=== PATIENT | female | born 1990 | race Hispanic/Latino ===

== ENCOUNTER 2019-10-29 11:06 | Emergency (ER) | payer SELFPAY ==
--- NOTE | ~2019-10-29 | CT_ITS ---
EXAMINATION: CT abdomen pelvis w con DATE: 10/29/2019 15:34 INDICATION: Nausea and vomiting. Diarrhea. Abdominal pain. TECHNIQUE: Computed tomography (CT) of the abdomen and pelvis was performed with 100 mL Omnipaque 350 intravenous contrast. Automated exposure control and iterative reconstruction technique were employe d. The dose-length product was 392.91 mGy-cm. COMPARISON: None. FINDINGS: The visualized portions of the lung bases demonstrate mild atelectasis in right lower lobe. No pleural effusion. The heart size is normal. No pericardial effusion. The liver is normal. The gal lbladder is normal in size. There is a gallstone in the gallbladder. Gallbladder wall thickening is n oted. The spleen, pancreas, adrenal glands, and right kidney are normal. There is a 2.0 cm cyst in le ft kidney. There are no dilated loops of bowel. The appendix is normal. There are no pathologically e nlarged lymph nodes. There is no free intraperitoneal fluid. The bones are unremarkable. IMPRESSION: 1. Cholelithiasis. Gallbladder wall thickening may be secondary to acute or chronic cholecystitis. Co nsider ultrasound. Reviewed, dictated and finalized at location A. IMPRESSION: 1. Cholelithiasis. Gallbladder wall thickening may be secondary to acute or chr onic cholecystitis. Consider ultrasound.
--- NOTE | ~2019-10-29 | US_ITS ---
US right upper quadrant INDICATION: Abdominal pain PROCEDURE: Realtime right upper abdominal ultrasound. COMPARISON: No prior studies for comparison. FINDINGS: The pancreas is normal without focal mass or pancreatic ductal dilation. Liver echotexture is normal without focal mass or intrahepatic biliary dilatation. There is normal directional flow i n the portal vein. The gallbladder is normal without stones, gallbladder wall thickening or pericholecystic fluid. Comm on bile duct measures 5 mm. No sonographic Robbins's sign. IMPRESSION: 1: Normal limited abdominal ultrasound. Reviewed, dictated and finalized at location A.
[2019-10-29 11:11] VITALS: BP 135/81; PULSE 70; RESP 18; TEMP 36.8; O2SAT 100
[2019-10-29 11:49] LABS: Basophils Percent Auto 0.2 % (0.2-1.2); Hematocrit 38.3 % (37.0-47.0); Hemoglobin 13.5 g/dL (12.0-15.0); Immature Granulocyte Absolute 0.06 K/mm3 (0.00-0.031); Immature Granulocyte Percent A 0.4 % (0-0.5); Lymphocytes Absolute Auto 1.43 K/mm3 (0.9-3.2); Lymphocytes Percent Auto 8.8 % (18.3-44.2); Mean Corpuscular HGB Conc 35.2 g/dl (32-36); Mean Corpuscular Volume 87.8 fl (80-100); Mean Platelet Volume 9.6 fl (7.4-10.4); Monocytes Absolute Auto 0.4 K/mm3 (0.1-0.6); Monocytes Percent Auto 2.3 % (2.6-8.5); Neutrophils Absolute Auto 14.3 K/mm3 (1.3-6.7); Neutrophils Percent Auto 88.3 % (45.5-73.1); Platelet Count Result 312 k/mm3 (150-375); Red Blood Count 4.36 M/mm3 (4.2-5.4); Red Cell Distribution Width 12.2 % (11.5-14.5); White Blood Count 16.2 K/mm3 (4.5-10.0)
[2019-10-29 11:59] LABS: Add Urine Microscopic? YES; Appearance Urine Clear (Clear); Bacteria Urine Trace /hpf; Bilirubin Urine Negative (Negative); Blood Urine Negative (Negative); Color Urine Yellow (Yellow); Glucose Urine UA Negative (Negative); Ketones Urine Negative (Negative); Leukocyte Esterase Ur Trace LEU/UL (Negative); Mucus Urine Rare /lpf; Nitrate Urine Negative (Negative); Protein Urine 1+ mg/dL (Negative); Specific Grav Ur 1.025 (1.001-1.035); Squamous Epithelial Cell Urine Few /hpf (Few); Urobilinogen Urine Negative mg/dL (<2.0)
[2019-10-29 12:06] LABS: Alanine Aminotransferase 22 U/L (4-35); Albumin Level 4.7 g/dL (3.5-5.1); Alkaline Phosphatase 74 U/L (38-126); Aspartate Amino Transferase 25 U/L (14-36); Bilirubin,Total 0.2 mg/dL (0.2-1.3); Blood Urea Nitrogen 9 mg/dL (7-17); Calcium 8.6 mg/dL (8.4-10.2); Carbon Dioxide 24 mmol/L (22-30); Chloride 102 mmol/L (98-107); Estimated CRCL calculation 138 ml/min; Estimated Glomerular Filt Rate > 60; Glucose 118 mg/dL (65-105); Lipase 71 U/L (23-300); Potassium 3.9 mmol/L (3.4-5.0); Sodium 133 mmol/L (137-145)
[2019-10-29] MEDS: FAMOTIDINE 20 MG/2 ML VIAL IV PUSH (12:15)
[2019-10-29] MEDS: SODIUM CHLORIDE 0.9% IV 1,000 ML 999 ML IV CONT ×2 (12:15→13:15)
[2019-10-29] MEDS: ONDANSETRON INJ 4 MG/2 ML VIAL IV PUSH ×2 (12:16→14:54)
--- NOTE | 2019-10-29 13:12 | PC.NURSE ---
Pt resting on stretcher with eyes closed. Pt denies any relief whatsoever of nausea or abd pain s/p meds IVP and liter of fluid.
--- NOTE | 2019-10-29 14:44 | PC.NURSE ---
Pt given white soda po, pt states is still having horrible abd pain. Last intake of food was last night. Pt offered crackers and refuses.
[2019-10-29] MEDS: BELLADONNA ALK/PHENOB ELIX 10 ML, MAG HYDROX/ALUMINUM HYD/SIMETH 30 ML, LIDOCAINE HCL 2... PO (14:57)
[2019-10-29] MEDS: HYOSCYAMINE SULFATE 0.125 MG TABLET PO (14:58)
--- NOTE | 2019-10-29 14:58 | PC.NURSE ---
Pt took one drink of white soda po and states the pain is too severe and is unable to take any more. Additional meds iv and po for pain. Awaiting CT availabililty.
--- NOTE | 2019-10-29 15:15 | ED.ABDPAIN ---
HPI - Abdominal Pain General Chief Complaint: Abdominal Pain <Kings Cosby PA-C - Last Filed: 10/29/19 17:17> Stated Complaint: abd pain <ROSE Lozano Last Filed: 10/29/19 17:17> Time Seen by Provider: 10/29/19 12:03 <Kings Cosby PA-C - Last Filed: 10/29/19 17:17> Source: patient <Kings Cosby PA-C - Last Filed: 10/29/19 17:17> Mode of arrival: ambulatory <ROSE Lozano Last Filed: 10/29/19 17:17> Limitations: no limitations <ROSE Lozano Last Filed: 10/29/19 17:17> History of Present Illness HPI narrative: Patient is a 29-year-old female who presents to emergency department for evaluation of nausea and vomiting that began last night noting multiple episodes of emesis that occurred it once in no tapered off says since that epigastric abdominal pain is an intermittent aching pain patient denies any rectal bleeding hematemesis no she had one loose stool patient otherwise on arrival resting comfortably in the room in no distress <Kings Cosby PA-C - Last Filed: 10/29/19 17:17> Related Data Allergies/Adverse Reactions: Allergies Allergy/AdvReac Type Severity Reaction Status Date / Time No Known Allergies Allergy Verified 10/29/19 11:33 <Kings Cosby PA-C - Last Filed: 10/29/19 17:17> Review of Systems Review of Systems: All systems reviewed & are unremarkable except as noted in HPI and below <Kings Cosby PA-C - Last Filed: 10/29/19 17:17> [facility] Social History Social History: Social History (Updated 10/29/19 @ 15:18 by Kings Cosby PA-C) Smoking status: Never smoker Gender identity (if verbalized by the patient): Female <ROSE Lozano Last Filed: 10/29/19 17:17> Exam Narrative: Exam Narrative: GENERAL: Well-appearing, well-nourished, and in no acute distress. HEAD: Normocephalic, atraumatic. EYES: PERRLA and EOMI. ENT: Nares clear, no rhinorrhea or epistaxis. Mucous membranes moist. CHEST: Clear to auscultation. No respiratory distress. No wheezes rales or rhonchi HEART: Regular rate and rhythm. No murmur heard. Normal peripheral pulses. ABDOMEN: Soft, epigastric abdominal tenderness to palpation, nondistended EXTREMITIES: Normal range of motion. No edema. SKIN: Warm, dry, no rash. NEURO: No focal deficits. Alert and oriented x3. Cranial nerves II through XII grossly intact PSYCH: Normal mood and affect. <Kings Cosby PA-C - Last Filed: 10/29/19 17:17> Course Course Emergency Course: Patient in the room in no distress aware of case findings treatment plan and diagnosis agreeing to follow-up with primary care and provided general surgery follow-up patient feeling much better with interventions and medications which include fluids antibiotic and pain management patient is afebrile nontoxic-appearing at this time will be discharged home with plan follow-up cyst noted <Kings Cosby PA-C - Last Filed: 10/29/19 17:17> Vital Signs Vital signs: Vital Signs Temperature 98.3 F 10/29/19 11:11 Pulse Rate 70 10/29/19 11:11 Respiratory Rate 18 10/29/19 11:11 Blood Pressure 135/81 10/29/19 11:11 Pulse Oximetry 100 10/29/19 11:11 Temperature 98.3 F 10/29/19 11:11 Pulse Rate 63 10/29/19 16:48 Respiratory Rate 18 10/29/19 16:48 Blood Pressure 110/72 10/29/19 16:48 Pulse Oximetry 100 10/29/19 16:48 <ROSE Lozano Last Filed: 10/29/19 17:17> Vital Signs Temperature 98.3 F 10/29/19 11:11 Pulse Rate 70 10/29/19 11:11 Respiratory Rate 18 10/29/19 11:11 Blood Pressure 135/81 10/29/19 11:11 Pulse Oximetry 100 10/29/19 11:11 Temperature 98.3 F 10/29/19 11:11 Pulse Rate 63 10/29/19 16:48 Respiratory Rate 18 10/29/19 16:48 Blood Pressure 110/72 10/29/19 16:48 Pulse Oximetry 100 10/29/19 16:48 <Alejandra Christy MD - Last Filed: 10/29/19 17:49> MDM - Abdominal Pain MDM Narrati
--- NOTE | 2019-10-29 15:29 | PC.NURSE ---
To CT via w/c.
[2019-10-29 16:48] VITALS: BP 110/72; PULSE 63; RESP 18; O2SAT 100
--- NOTE | 2019-10-29 16:48 | PC.NURSE ---
Awaiting us report. States pain is much better, rates at 4/10.
== END 2019-10-29 17:35 | disposition home or self-care (01) ==
PROVIDERS: Emergency Medicine Emergency Medical Services; Emergency Provider Emergency Medicine
DX: R10.13 Epigastric pain (principal); K80.20 Calculus of gallbladder without cholecystitis without obstruction
CPT/HCPCS: 36415; 74177; 76705; 80053; 81001; 81025; 83690; 85025; 96361; 96365; 96367; 96375; 96376; 99284; A9270; J0131; J2405; J2543; J7030; Q9967

== ENCOUNTER 2019-11-13 01:29 | Outpatient (CLI) | payer SELFPAY ==
[2019-11-13 19:24] LABS: SARS-CoV-2 RNA PCR Negative
== END 2019-11-13 01:30 | disposition home or self-care (01) ==
LOC: ANHCOVIDDT 01:29
PROVIDERS: Visit Provider Surgery
DX: Z01.812 Encounter for preprocedural laboratory examination (principal); Z11.59 Encounter for screening for other viral diseases
CPT/HCPCS: 87635; C9803; U0003

== ENCOUNTER 2019-11-13 09:32 | Outpatient (CLI) | payer SELFPAY ==
[2019-11-13 11:11] LABS: Alanine Aminotransferase 18 U/L (4-35); Albumin Level 4.1 g/dL (3.5-5.1); Alkaline Phosphatase 54 U/L (38-126); Amylase 109 U/L (30-110); Aspartate Amino Transferase 23 U/L (14-36); Bilirubin,Total 0.2 mg/dL (0.2-1.3)
== END 2019-11-13 09:33 | disposition home or self-care (01) ==
LOC: ANHSURGERY 09:52
PROVIDERS: Visit Provider Surgery
DX: K80.10 Calculus of gallbladder with chronic cholecystitis without obstruction (principal); Z01.812 Encounter for preprocedural laboratory examination
CPT/HCPCS: 36415; 80076; 82150; 86850; 86900; 86901

== ENCOUNTER 2019-11-15 01:20 | Day surgery (SDC) | payer SELFPAY ==
[2019-11-13 10:45] VITALS: BP 120/72; PULSE 66; RESP 18; TEMP 37.2; O2SAT 100; BMI 28.6
[2019-11-15] VITALS (8 sets, daily range): BP systolic 110–131; BP diastolic 69–78; PULSE 56–93; RESP 12–18; TEMP 36.3–36.4; O2SAT 95–100
[2019-11-15] MEDS: LACTATED RINGERS 1,000 ML 30 ML IV CONT ×3 (09:01→12:18)
[2019-11-15] MEDS: KETOROLAC 15 MG/ML VIAL (*BKC) IV PUSH (09:06)
--- NOTE | 2019-11-15 09:47 | WPDANESEPPF ---
Anes - Initial Pre Proc Eval Procedure: Operation Date: 11/15/19 10:30 Proposed Procedures p Laparoscopic Cholecystectomy - Snow Bourgeois MD Date/Time: 11/15/19 09:47 Surgeon: Snow Bourgeois MD Pre Op Diagnosis: Chronic Cholecystitis with Cholelithiasis Patient Data Age: 29 Gender: F Height: 5 ft 2 in Weight: 69.2 kg Last Vital Signs Temp 97.4 F L 11/15/19 09:10 Pulse 58 L 11/15/19 09:10 Resp 16 11/15/19 09:10 BP 113/71 11/15/19 09:10 Pulse Ox 100 11/15/19 09:10 Allergies Allergy/AdvReac Type Severity Reaction Status Date / Time No Known Allergies Allergy Verified 11/15/19 08:46 Home Medications Medication Instructions Recorded Confirmed Type acetaminophen [Tylenol] 650 mg PO ONCE PRN 11/13/19 11/15/19 History Patient hx anesthesia problems: none Family hx anesthesia problems: none [facility] Past Medical History Medical History (Updated 11/12/19 @ 16:11 by Dayanna Ellington) Diabetes Family History Family History (Updated 11/12/19 @ 13:46 by Tamy Fenton) Father Diabetes mellitus Hypertension Mother Uterine cancer Unknown Diabetes mellitus Heart disease Cerebrovascular accident Hypertension Cancer Kidney disease Social History Social History (Updated 11/12/19 @ 13:46 by Tamy Fenton) Smoking status: Never smoker Alcohol intake: never Substance use: never Living arrangements: with family Gender identity (if verbalized by the patient): Female Spiritual care concerns: No Anes - Eval Final PreProcedure Day of Procedure 11/15/19 09:47 Patient weight: normal Heart: regular rate and rhythm Lungs: clear to auscultation Airway: Mallampati scale class II Neurological: alert and oriented Last oral intake: >/= 8 hours ASA classification: I Emergent: no Anesthetic plan: proceed Anesthesia type and monitoring: general ETT and standard monitoring Informed Consent: The patient's anesthetic plan and its attendant risks and benefits were discussed with the patient/family/POA. Questions were solicited and answers provided to the satisfaction of the patient/family/POA.
--- NOTE | 2019-11-15 09:50 | WPDHPUPDATE1 ---
History and Physical Update Update Date/Time: 11/15/19 09:50 History and Physical has been reviewed, including an updated exam of the patient. There are NO changes in the patient's condition. Risks, benefits, and alternatives have been discussed and questions answered. Patient agrees to proceed with procedure.
[2019-11-15] MEDS: ceFAZolin 2 GM/D5W 50 ML 2 GM/50 ML BAG IVPB (10:14)
[2019-11-15] MEDS: BUPIVACAINE/EPINEPHRINE 0.5% 30 ML VIAL INFILTRATE (10:39)
--- NOTE | 2019-11-15 11:07 | PM.PROC ---
Procedure Note - Detailed Date of procedure: 11/15/19 Pre-op diagnosis: Chronic Cholecystitis with Cholelithiasis Post-op diagnosis: same Procedure performed: laparoscopic cholecystectomy Description of procedure: The patient was taken to the operating room placed in the supine position. After adequate induction of general anesthesia, the patient was prepped and draped in normal sterile fashion. A time-out was then performed to verify the patient's identity as well as the procedure being performed. I then made a 5 mm incision in the infraumbilical region. Through this, a Veress needle was placed into the peritoneal cavity and CO2 gas was then insufflated. After adequate pneumoperitoneum was achieved, the Veress needle was removed and a 5 mm trocar was placed through this incision. I then placed the laparoscope through this trocar site and under direct visualization placed a further 12 mm subxiphoid port as well as 2 additional 5 mm ports in the right upper abdomen. The gallbladder was then identified and was noted to be slightly inflamed. I was able to place a grasper at the dome of the gallbladder and this was retracted anterior and cephalad up over the liver. A 2nd retractor was then placed at the infundibulum and retracted laterally, this allowed visualization of the triangle of Calot. I then was able to visualize the cystic duct in its entirety from its proximal insertion into the gallbladder, to its distal junction with the common hepatic/common bile duct junction. At this point, I carefully skeletonized the proximal cystic duct with the [place] dissector. I then clipped and transected the proximal cystic duct. Next I visualized the cystic artery. Again the artery was skeletonized, clipped, and transected. I then used the Bovie cautery to take down the peritoneal attachments of the gallbladder off the liver bed. Once the gallbladder specimen was completely detached, an endo-pouch was placed through the 12 mm port site. I then placed the gallbladder specimen into the Endo pouch and removed the endo-pouch from the 12 mm port site. The specimen will now be sent to pathology for further review. I then copiously irrigated the right upper quadrant. Hemostasis was noted in the liver bed, the clips were noted to be in good position on both the cystic duct stump and the cystic artery stump. No other pathology was noted in the right upper quadrant. I then moved the laparoscope to the subxiphoid port. No iatrogenic injury or other pathology was noted in the lower abdomen. At this point, the abdomen was desufflated and all ports removed. The fascia of the 12 mm subxiphoid port was closed with a 0 Vicryl figure of 8 suture. All port sites were then closed with 4.O Monocryl subcuticular sutures. Dermabond was placed on each incision. The patient tolerated the procedure well, was extubated in the operating room postoperative and will be transferred to the recovery room in stable condition. Implants: none Anesthesia: GETA Surgeon: Snow Bourgeois MD Estimated blood loss (mL): 5 Drains: No Packing: No Pathology: yes Complications: No immediate complications Condition: stable Disposition: PACU Findings: mild cholecystitis
--- NOTE | 2019-11-15 13:13 | SUR.PHASEII ---
INSTRUCTIONS REVIEWED IN [place] WITH PT AND IN CIT[place] WITH BOYFRIEND. ICE PACK GIVEN TO PT TO APPLY TO ABDOMEN.
== END 2019-11-15 13:10 | disposition home or self-care (01) ==
PROVIDERS: Visit Provider Surgery
PROC: 0FT44ZZ Resection of Gallbladder, Percutaneous Endoscopic Approach (ICD-10-PCS; CPT 47562; principal; 2019-11-15 10:30)
DX: K80.10 Calculus of gallbladder with chronic cholecystitis without obstruction (principal)
CPT/HCPCS: 47562; 88304; A9270; J0690; J1100; J1885; J2250; J2405; J2704; J2710; J3010; J7030; J7120